=== PATIENT | female | born 1990 | race African-American/Black ===

== ENCOUNTER 2016-12-13 11:57 | Emergency (ER) | payer MEDICAID ==
[2016-12-13 12:35] VITALS: BP 114/48
--- NOTE | 2016-12-13 12:37 | ER Document Report ---
ED Medical Screen (RME) - General Stated Complaint: VIOMITING,COUGH Time seen by provider: 12:34 Mode of Arrival: Ambulatory Information source: Patient Notes: 26-year-old female presents to ED nausea or vomiting cough headache last menstrual period was 08/10/2016. States she took a home test which was positive. States she just moved to the area and does not know where her doctors are. She states she's been smoking since she was possibly I have greeted and performed a rapid initial assessment of this patient. A comprehensive ED assessment and evaluation of the patient, analysis of test results and completion of medical decision making process will be conducted by an additional ED providers. TRAVEL OUTSIDE OF THE [place] IN LAST 30 DAYS: No - Related Data Allergies/Adverse Reactions: ibuprofen Allergy (Verified 04/12/16 11:38) Generalized Itching Past Medical History Pulmonary Medical History: Reports: Hx Bronchitis Musculoskeltal Medical History: Reports Hx Arthritis - Immunizations Hx Diphtheria, Pertussis, Tetanus Vaccination: No - 1999
[2016-12-13 13:06] LABS: ABSOLUTE EOSINOPHILS # (AUTO) 0.1 10^3/uL (0.0-0.6); ABSOLUTE LYMPHOCYTES (AUTO) 3.1 10^3/uL (0.5-4.7); ABSOLUTE MONOCYTES (AUTO) 0.6 10^3/uL (0.1-1.4); ABSOLUTE NEUT (AUTO) 4.3 10^3/uL (1.7-8.2); BASOPHILS % (AUTO) 0.3 % (0-2); EOSINOPHILS % (AUTO) 0.7 % (0-6); HEMATOCRIT 34.7 % (36.0-47.0); HEMOGLOBIN 11.3 g/dL (12.0-15.5); HGB HCT DIFFERENCE -0.8; LYMPHOCYTES % (AUTO) 38.5 % (13-45); MEAN CORPUSCULAR HEMOGLOBIN 24.2 pg (27.0-33.4); MEAN CORPUSCULAR HGB CONC 32.6 g/dL (32.0-36.0); MEAN CORPUSCULAR VOLUME 74 fl (80-97); MONOCYTES % (AUTO) 7.4 % (3-13); RED BLOOD COUNT 4.68 10^6/uL (3.72-5.28); RED CELL DISTRIBUTION WIDTH 14.5 % (11.5-14.0); SEGMENTED NEUTROPHILS % (AUTO) 53.1 % (42-78)
[2016-12-13 13:23] LABS: APPEARANCE,URINE SLIGHTLY-CLOUDY; BILIRUBIN,URINE NEGATIVE (NEGATIVE); GLUCOSE, URINE NEGATIVE (NEGATIVE); KETONES,URINE NEGATIVE (NEGATIVE); LEUKOCYTE ESTERASE,URINE NEGATIVE (NEGATIVE); NITRITE,URINE NEGATIVE (NEGATIVE); PROTEIN,URINE NEGATIVE (NEGATIVE); URINE SPECIFIC GRAVITY 1.009; UROBILINOGEN,URINE NEGATIVE mg/dL (<2.0)
[2016-12-13 13:34] LABS: ALANINE AMINOTRANSFERASE 22 U/L (9-52); ALBUMIN 3.9 g/dL (3.5-5.0); ALKALINE PHOSPHATASE 71 U/L (38-126); ANION GAP 12 (5-19); ASPARTATE AMINO TRANSFERASE 14 U/L (14-36); BILIRUBIN,DIRECT 0.2 mg/dL (0.0-0.4); BILIRUBIN,TOTAL 0.4 mg/dL (0.2-1.3); BLOOD UREA NITROGEN 6 mg/dL (7-20); CALCIUM 9.4 mg/dL (8.4-10.2); CARBON DIOXIDE 22 mmol/L (22-30); CHLORIDE 107 mmol/L (98-107); CREATININE RESULT 0.45 mg/dL (0.52-1.25); GLUCOSE 70 mg/dL (75-110); POTASSIUM 4.1 mmol/L (3.6-5.0); SODIUM 140.8 mmol/L (137-145)
== END 2016-12-13 15:00 | disposition left against medical advice (07) ==
LOC: ER 11:57
DX: Z53.9 Procedure and treatment not carried out, unspecified reason (principal); R11.10 Vomiting, unspecified; R05 Cough
CPT/HCPCS: 36415; 80053; 81001; 84702; 85025; 99281

== ENCOUNTER 2017-05-07 11:37 | Emergency (ER) | payer MEDICAID ==
--- NOTE | 2017-05-07 11:49 | ER Document Report ---
ED Medical Screen (RME) - General Chief Complaint: Numbness of Arm Stated Complaint: ARM PAIN Time Seen by Provider: 05/07/17 11:48 Mode of Arrival: Ambulatory Information source: Patient TRAVEL OUTSIDE OF THE [place] IN LAST 30 DAYS: No - HPI Patient complains to provider of: R arm numbess Onset: Yesterday - pt with onset of numbness and tingling of R arm from elbow to hand - she is 39 wks . - Related Data Allergies/Adverse Reactions: ibuprofen Allergy (Verified 05/07/17 11:44) Generalized Itching Home Medications: Current Home Medications Acetaminophen [Tylenol 325 mg Tablet] 650 mg PO Q6H PRN 05/07/17 [History] Past Medical History Pulmonary Medical History: Reports: Hx Bronchitis Renal/ Medical History: Denies: Hx Peritoneal Dialysis Musculoskeltal Medical History: Reports Hx Arthritis - Immunizations Hx Diphtheria, Pertussis, Tetanus Vaccination: No - 1999 Physical Exam - Vital signs Vitals: Temp Pulse Resp BP Pulse Ox 98.5 F 89 18 129/82 H 98 05/07/17 11:38 05/07/17 11:38 05/07/17 11:38 05/07/17 11:38 05/07/17 11:38 Course - Vital Signs Vital signs: Temp Pulse Resp BP Pulse Ox 98.5 F 89 18 129/82 H 98 05/07/17 11:38 05/07/17 11:38 05/07/17 11:38 05/07/17 11:38 05/07/17 11:38
[2017-05-07 12:16] LABS: HEMATOCRIT 32.4 % (36.0-47.0); HEMOGLOBIN 10.3 g/dL (12.0-15.5); HGB HCT DIFFERENCE -1.5; MEAN CORPUSCULAR HEMOGLOBIN 23.5 pg (27.0-33.4); MEAN CORPUSCULAR HGB CONC 31.8 g/dL (32.0-36.0); MEAN CORPUSCULAR VOLUME 74 fl (80-97); RED BLOOD COUNT 4.39 10^6/uL (3.72-5.28); RED CELL DISTRIBUTION WIDTH 18.5 % (11.5-14.0); WHITE BLOOD COUNT 7.4 10^3/uL (4.0-10.5)
[2017-05-07 12:30] LABS: ALANINE AMINOTRANSFERASE 19 U/L (9-52); ALBUMIN 3.1 g/dL (3.5-5.0); ALKALINE PHOSPHATASE 136 U/L (38-126); ANION GAP 6 (5-19); ASPARTATE AMINO TRANSFERASE 18 U/L (14-36); BILIRUBIN,DIRECT 0.3 mg/dL (0.0-0.4); BILIRUBIN,TOTAL 0.4 mg/dL (0.2-1.3); BLOOD UREA NITROGEN 5 mg/dL (7-20); CALCIUM 8.8 mg/dL (8.4-10.2); CARBON DIOXIDE 22 mmol/L (22-30); CHLORIDE 109 mmol/L (98-107); CREATININE RESULT 0.48 mg/dL (0.52-1.25); GLUCOSE 76 mg/dL (75-110); POTASSIUM 4.1 mmol/L (3.6-5.0); SODIUM 136.7 mmol/L (137-145); TOTAL PROTEIN 6.1 g/dL (6.3-8.2)
[2017-05-07 12:34] LABS: BAND NEUTROPHILS % (MANUAL) 2 % (3-5); BASOPHILS % (MANUAL) 0 % (0-2); EOSINOPHILS % (MANUAL) 1 % (0-6); LYMPHOCYTES % (MANUAL) 38 % (13-45); TOTAL CELLS COUNTED 100
[2017-05-07 12:38] LABS: ANISOCYTOSIS 2+; BURR CELLS SLIGHT; HYPOCHROMASIA 1+; MICROCYTOSIS 1+; OVALOCYTES 1+; POIKILOCYTOSIS 1+; POLYCHROMASIA 1+; TARGET CELLS SLIGHT; TEAR DROP CELLS 1+
--- NOTE | 2017-05-07 12:38 | ER Document Report ---
ED Neuro Symptoms/Deficit - General Chief Complaint: Numbness of Arm Stated Complaint: ARM PAIN Time Seen by Provider: 05/07/17 12:27 Mode of Arrival: Ambulatory TRAVEL OUTSIDE OF THE [place] IN LAST 30 DAYS: No - HPI Patient complains to provider of: Paresthesia - R. UPPER EXTREMITY Onset: Other - 1-1/2 WEEKS Awoke with symptoms: No Symptoms are: Intermittent episodes Duration: Continues in ED - WORSENING LAST PM & TODAY Quality of pain: No pain Context: Other - 3rd TRIMESTER Loss of consciousness: No loss of consciousness Was STROKE ALERT Called: No Baseline Cognitive: Alert, oriented X 3 Baseline Gait: Walks w/o assistance Alert To: Name/Voice Patient Orientation: Person Vision problem/glaucoma: No Associated symptoms: denies: Headache, Nausea, Short of breath, Sweaty, Vomiting Similar symptoms previously: No Recently seen / treated by doctor: Yes - ROUTINE PRE-ROSEY - Related Data Allergies/Adverse Reactions: ibuprofen Allergy (Verified 05/07/17 11:44) Generalized Itching Home Medications: Current Home Medications Acetaminophen [Tylenol 325 mg Tablet] 650 mg PO Q6H PRN 05/07/17 [History] Past Medical History - General Information source: Patient - Social History Smoking Status: Current Every Day Smoker Chew tobacco use (# tins/day): No Frequency of alcohol use: None Drug Abuse: None Lives with: Family Family History: Arthritis, CAD, CVA, DM, Hyperlipidemia, Hypertension, Malignancy, Thyroid Disfunction Patient has suicidal ideation: No Patient has homicidal ideation: No - Past Medical History Cardiac Medical History: Reports: None Pulmonary Medical History: Reports: Hx Bronchitis EENT Medical History: Reports: None Neurological Medical History: Reports: None Endocrine Medical History: Reports: None Renal/ Medical History: Reports: None. Denies: Hx Peritoneal Dialysis Malignancy Medical History: Reports: None GI Medical History: Reports: None Musculoskeltal Medical History: Reports Hx Arthritis Psychiatric Medical History: Reports: None Surgical Hx: Negative - Immunizations Hx Diphtheria, Pertussis, Tetanus Vaccination: No - 1999 Review of Systems - Review of Systems Constitutional: No symptoms reported EENT: No symptoms reported Cardiovascular: No symptoms reported Respiratory: No symptoms reported Gastrointestinal: No symptoms reported Genitourinary: No symptoms reported Female Genitourinary: No symptoms reported Musculoskeletal: No symptoms reported Skin: No symptoms reported Neurological/Psychological: See HPI Physical Exam - Vital signs Vitals: Temp Pulse Resp BP Pulse Ox 98.5 F 89 18 129/82 H 98 05/07/17 11:38 05/07/17 11:38 05/07/17 11:38 05/07/17 11:38 05/07/17 11:38 Interpretation: Normal. No: Hypertensive, Tachycardic, Tachypneic, Febrile - General General appearance: Appears well, Alert In distress: None - HEENT Head: Normocephalic Eyes: Normal Conjunctiva: Normal Cornea: Normal Extraocular movements intact: Yes Eyelashes: Normal Pupils: PERRL Anterior chamber: Normal Fundascopic: Normal Visual hitchcock normal: No - DEFICIT ON RIGHT Ears: Normal Nasal: Normal Mouth/Lips: Normal Mucous membranes: Normal Pharynx: Normal Neck: Normal - Respiratory Respiratory status: No respiratory distress Breath sounds: Normal - Cardiovascular Rhythm: Regular Heart sounds: Normal auscultation Murmur: No - Abdominal Inspection: Gravid female Bowel sounds: Normal - Back Back: Normal - Extremities General upper extremity: Normal inspection General lower extremity: Edema - TRACE, BILAT. - Neurological Neuro grossly intact: Yes Cognition: Normal Orientation: AAOx4 - Psychological Associated symptoms: Normal affect, Normal mood - Skin Skin Temperature: Warm Skin Moisture: Dry Skin Color: Normal Skin Turgor: Elastic Course - Vital Signs Vital signs: Temp Pulse Resp BP Pulse Ox 98.5 F 80 24 H 118/79 100 05/07/17 11:38 05/07/17 12:30 05/07/17 13:00 05/07/17 12:30 05/07/17 13:00 - Laboratory Result Diagrams: 05/07/17 11:58 05/07/17 11:58 Laboratory results interpreted by me: 05/07/17 05/07/17 11:58 11:58 Hgb 10.3 L Hct 32.4 L MCV 74 L MCH 23.5 L MCHC 31.8 L RDW 18.5 H Band Neutrophils % 2 L Metamyelocytes % 1 H Sodium 136.7 L Chloride 109 H BUN 5 L Creatinine 0.48 L Alkaline Phosphatase 136 H Total Protein 6.1 L Albumin 3.1 L Discharge - Discharge Clinical Impression: Paresthesia of right upper extremity Qualifiers: Weeks of gestation: 38 weeks Qualified Code(s): Z3A.38 - 38 weeks gestation of Condition: Stable Disposition: HOME, SELF-CARE Instructions: Numbness or Paresthesia ([facility]), Edema, Peripheral ([facility]) Additional Instructions: USE SPLINT ON RIGHT ARM & WRIST IF IT SEEMS HELPFUL. KEEP FEET, LEGS, AND RIGHT ARM ELEVATED WHEN POSSIBLE. FOLLOW UP FOR YOUR [place] SECTION TUESDAY SCHEDULED. RETURN TO E.R. IF PROBLEMS. Referrals: RANDY SHEPHERD DO [[facility]] - 05/11/17
--- NOTE | 2017-05-07 14:00 | RADIOLOGY REPORT (SQ) ---
EXAM DESCRIPTION: MRI HEAD WITHOUT COMPLETED DATE/TIME: 05/07/2017 1:45 pm REASON FOR STUDY: R. UPPER EXTREMITY PARESTHESIA, VIS. FIELD DEFICIT COMPARISON: None. TECHNIQUE: Multiplanar imaging includes non-contrasted T1, T2, FLAIR, and diffusion with ADC map seq uences. Images stored on PACS. LIMITATIONS: None. FINDINGS: ANATOMY: No anomalies. Normal vascular flow voids. Pituitary fossa normal. CSF SPACES: Normal in size and contour. No hemorrhage. CEREBRUM: Sulci and gyri normal in size and contour. Normal white matter signal on FLAIR imaging. No evidence of hemorrhage, mass, or extraaxial fluid collection. POSTERIOR FOSSA: No signal alteration. No hemorrhage. No edema, masses or mass effect. Internal monet tory canals, cerebello-pontine angles, mastoids normal. DIFFUSION IMAGING: Negative for acute or sub-acute infarction. ORBITS: No masses. Globes normal. PARANASAL SINUSES: No fluid levels. Mucosa normal. OTHER: No other significant finding. IMPRESSION: NORMAL MRI OF THE BRAIN WITHOUT INTRAVENOUS GADOLINIUM CONTRAST. EVIDENCE OF ACUTE STROKE: NO. TECHNICAL DOCUMENTATION: JOB ID: [id number] [employer]- All Rights Reserved
[2017-05-07 22:28] VITALS: BP 121/72
== END 2017-05-07 16:05 | disposition home or self-care (01) ==
LOC: ER 11:37
DX: O26.93 Pregnancy related conditions, unspecified, third trimester (principal); R20.8 Other disturbances of skin sensation; O99.333 Smoking (tobacco) complicating pregnancy, third trimester; Z3A.38 38 weeks gestation of pregnancy
CPT/HCPCS: 99284; 36415; 85025; 80053; 70551; L3908

== ENCOUNTER 2017-05-11 06:16 | Inpatient (IN) | payer MEDICAID ==
[2017-05-10 11:33] LABS: APPEARANCE,URINE CLEAR; BILIRUBIN,URINE NEGATIVE (NEGATIVE); GLUCOSE, URINE NEGATIVE (NEGATIVE); KETONES,URINE NEGATIVE (NEGATIVE); LEUKOCYTE ESTERASE,URINE TRACE (NEGATIVE); NITRITE,URINE NEGATIVE (NEGATIVE); PROTEIN,URINE NEGATIVE (NEGATIVE); URINE SPECIFIC GRAVITY 1.004; UROBILINOGEN,URINE NEGATIVE mg/dL (<2.0)
[2017-05-10 11:43] LABS: HEMATOCRIT 34.3 % (36.0-47.0); HEMOGLOBIN 10.7 g/dL (12.0-15.5); HGB HCT DIFFERENCE -2.2; MEAN CORPUSCULAR HEMOGLOBIN 23.4 pg (27.0-33.4); MEAN CORPUSCULAR HGB CONC 31.2 g/dL (32.0-36.0); MEAN CORPUSCULAR VOLUME 75 fl (80-97); RED BLOOD COUNT 4.57 10^6/uL (3.72-5.28); RED CELL DISTRIBUTION WIDTH 19.7 % (11.5-14.0); WHITE BLOOD COUNT 7.8 10^3/uL (4.0-10.5)
[2017-05-10 11:50] LABS: URINE BARBITURATES SCREEN NEGATIVE; URINE METHADONE SCREEN NEGATIVE; URINE OPIATES LOW NEGATIVE; URINE PHENCYCLIDINE SCREEN NEGATIVE
[2017-05-10 12:18] LABS: BASOPHILS % (MANUAL) 0 % (0-2); EOSINOPHILS % (MANUAL) 0 % (0-6); LYMPHOCYTES % (MANUAL) 33 % (13-45); TOTAL CELLS COUNTED 100
[2017-05-10 12:20] LABS: ANISOCYTOSIS 2+; MICROCYTOSIS 1+; OVALOCYTES SLIGHT; POIKILOCYTOSIS 1+; POLYCHROMASIA 1+; TEAR DROP CELLS SLIGHT; TOXIC GRANULATION SLIGHT
[~2017-05-11 06:16] MED LIST: LACTATED RINGERS 1000 ML IV PRN; LIDOCAINE 0.5% INJ-PF (5 MG/ML) 50 ML SDV SUBCUT PRN; RINGERS SOLUTION,LACTATED 1,000 ML IV PRN
[2017-05-11] MEDS ORDERED: OXYTOCIN 10 UNIT/ML VIAL ONE (09:01)
[2017-05-11] MEDS ORDERED: MIDAZOLAM 2 MG/2 ML INJ ONE (09:02)
[2017-05-11] MEDS ORDERED: FENTANYL CITRATE INJ/PF 250 MCG/5 ML AMPULE ONE (09:02)
[2017-05-11] MEDS ORDERED: FENTANYL CITRATE INJ/PF 100 MCG/2 ML AMPUL ONE ×2 (09:02→10:29)
[2017-05-11] MEDS ORDERED: OXYTOCIN/NORMAL SALINE 20 UNIT/1,000 ML RTUINJ ONE ×2 (09:02→10:30)
[2017-05-11] MEDS ORDERED: EPHEDRINE SULFATE INJ 50 MG/1 ML AMPULE ONE (09:02)
[2017-05-11] MEDS ORDERED: ACETAMINOPHEN 100 ML IV ONE (09:02)
[2017-05-11] MEDS ORDERED: ONDANSETRON HCL INJ/PF 4 MG/2 ML SDV ONE (09:02)
[2017-05-11] MEDS ORDERED: FENTANYL CITRATE INJ/PF 100 MCG/2 ML AMPUL IV PRN ×2 (09:47)
[2017-05-11] MEDS ORDERED: DIPHENHYDRAMINE HCL 50 MG/ML VIAL IV PRN (09:47)
[2017-05-11] MEDS ORDERED: PROMETHAZINE HCL INJ 25 MG/1 ML VIAL IV PRN (09:47)
[2017-05-11] MEDS ORDERED: NALBUPHINE HCL INJ 10 MG/1 ML AMPULE IM ONE (09:56)
[2017-05-11] MEDS ORDERED: NALBUPHINE HCL INJ 10 MG/1 ML AMPULE ONE (10:29)
[2017-05-11] MEDS: FENTANYL CITRATE INJ/PF 100 MCG/2 ML AMPUL IV PRN ×3 (10:57→11:21)
[2017-05-11] MEDS: CEFAZOLIN 2 GM/D5W RTU 2 GM/50 ML RTUPB IV PRN ×2 (11:21→11:22)
[2017-05-11] MEDS: MORPHINE SULFATE 10 MG/ML INJ IV PRN ×3 (11:30→11:47)
[2017-05-11] MEDS ORDERED: MORPHINE SULFATE 10 MG/ML INJ ONE (11:32)
--- NOTE | 2017-05-11 11:32 | OPERATIVE REPORT E ---
Operative Report NAME: SANDRA MELENDEZ : 1990 AGE: 26Y DATE OF SURGERY: 05/11/2017 ROOM: 222 PREOPERATIVE DIAGNOSIS: Intrauterine at 39 weeks with history of and desire for repeat. POSTOPERATIVE DIAGNOSIS: Intrauterine at 39 weeks with history of and desire for repeat. OPERATION PERFORMED: Repeat low-transverse cervical section. SURGEON: DES LOPEZ M.D. ANESTHESIA: Spinal. ESTIMATED BLOOD LOSS: 600 mL. FINDINGS: Uribe male , vertex presentation. Weight was 2875 g. Apgars were 8 and 9. Double nuchal cord was present, which was reduced during delivery. Uterus, tubes and ovaries appeared normal. There was clear amniotic fluid. SPECIMEN TO PATHOLOGY: None. The placenta was discarded. DESCRIPTION OF PROCEDURE: After discussing risks, benefits, and alternatives of the procedure and obtaining informed consent, the patient was taken to the operating room where spinal anesthesia was achieved. She was positioned in a dorsal supine position with a leftward tilt. A Mccarty catheter was placed and she was prepped and draped in the usual standard fashion. A Pfannenstiel skin incision was made. The abdomen was entered in layers in the standard fashion. A C-safe knife was used to make a low-transverse cervical incision. The surgeon's hand was entered into the hysterotomy incision and the vertex delivered easily. The nuchal cords were reduced. The shoulders and body delivered easily thereafter. Cord was clamped and cut. Nasopharynx and oropharynx were bulb suctioned. The infant was handed to Pediatrics who were present. The placenta was manually extracted. The uterus was exteriorized and cleared of all clots and debris. The hysterotomy incision was closed in 2 layers with 0 Monocryl in a running, locked manner. An area of oozing was noted on the left aspect of the incision and a [id number]-[id number] of 0 Monocryl was used and hemostasis was observed. Uterus, tubes and ovaries were returned to the peritoneal cavity. The cavity was irrigated and hemostasis again observed. Peritoneum was closed with 2-0 Vicryl in a pursestring fashion. The rectus muscles were loosely reapproximated with interrupted stitches of 2-0 Vicryl. The subfascial spaces were inspected and noted to be hemostatic. The fascia was closed with #1 Vicryl. Subcutaneous spaces were irrigated and hemostasis assured. The skin was closed in a subcuticular fashion with 3-0 Monocryl. An OpSite dressing was applied. The patient was taken to recovery in stable condition. All sponge, needle, lap and instrument counts were correct x2. DICTATING PHYSICIAN: DES LOPEZ M.D. [id number] PHY#: [id number] ID: [id number] JOB#: [id number] ACCT: [id number] cc:DES LOPEZ M.D. >
[2017-05-11] MEDS: MEPERIDINE HCL/PF INJ 25 MG/1 ML DISP.SYRIN IV PRN ×2 (12:12→12:19)
[2017-05-11] MEDS ORDERED: MEPERIDINE HCL/PF INJ 25 MG/1 ML DISP.SYRIN ONE (12:14)
[2017-05-11] MEDS ORDERED: OXYTOCIN/NORMAL SALINE 20 UNIT/1,000 ML RTUINJ INJ PRN (13:20)
[2017-05-11] MEDS ORDERED: MEASLES,MUMPS&RUBELLA VACC/PF 0.5 ML VIAL SUBCUT PRN (13:30)
[2017-05-11] MEDS ORDERED: SIMETHICONE 80 MG TAB.CHEW PO PRN (13:30)
[2017-05-11] MEDS ORDERED: HYDROMORPHONE HCL INJ/PF 2 MG/ML AMPULE IV PRN (13:30)
[2017-05-11] MEDS ORDERED: OXYCODONE-ACETAMINOPHEN 5-325 MG TABLET PO PRN (13:30)
[2017-05-11] MEDS ORDERED: PROMETHAZINE HCL INJ 25 MG/1 ML VIAL IM PRN (13:30)
[2017-05-11] MEDS ORDERED: DIPH/PERTUSS(ACELL)/TETANUS VAC/PF 0.5 ML SYR (>=10YO) IM PRN (13:30)
[2017-05-11] MEDS ORDERED: RINGERS SOLUTION,LACTATED 1,000 ML IV SCH (13:30)
[2017-05-11] MEDS ORDERED: ACETAMINOPHEN 325 MG TABLET PO PRN (13:30)
[2017-05-11] MEDS ORDERED: KETOROLAC TROMETHAMINE INJ/PF 30 MG/1 ML SDV IV SCH (14:00)
[2017-05-11] MEDS ORDERED: ACETAMINOPHEN 100 ML IV SCH (14:00)
[2017-05-11] MEDS ORDERED: HYDROMORPHONE HCL INJ/PF 2 MG/ML AMPULE ONE (14:17)
[2017-05-11] MEDS: OXYCODONE-ACETAMINOPHEN 5-325 MG TABLET PO PRN ×2 (14:50→20:25)
[2017-05-11] MEDS ORDERED: NAPROXEN 250 MG TABLET PO ONE (17:00)
[2017-05-11] MEDS: DOCUSATE SODIUM 100 MG CAPSULE PO SCH (18:44)
[2017-05-11] MEDS ORDERED: NAPROXEN 250 MG TABLET PO SCH (22:00)
[2017-05-11] MEDS: ZOLPIDEM TARTRATE 5 MG TABLET PO PRN (23:42)
[2017-05-12] MEDS: OXYCODONE-ACETAMINOPHEN 5-325 MG TABLET PO PRN ×5 (01:02→21:32)
[2017-05-12 07:56] LABS: HEMATOCRIT 28.3 % (36.0-47.0); HEMOGLOBIN 9.1 g/dL (12.0-15.5); MEAN CORPUSCULAR HEMOGLOBIN 23.6 pg (27.0-33.4); MEAN CORPUSCULAR HGB CONC 32.1 g/dL (32.0-36.0); MEAN CORPUSCULAR VOLUME 74 fl (80-97); RED BLOOD COUNT 3.84 10^6/uL (3.72-5.28); RED CELL DISTRIBUTION WIDTH 19.3 % (11.5-14.0); WHITE BLOOD COUNT 9.2 10^3/uL (4.0-10.5)
[2017-05-12] MEDS: PRENATAL VITAMIN W-O CA NO5/FE FUMARATE/FA CAPSULE PO SCH (09:39)
[2017-05-12] MEDS: NAPROXEN 250 MG TABLET PO SCH ×2 (09:40→21:32)
[2017-05-12] MEDS: DOCUSATE SODIUM 100 MG CAPSULE PO SCH ×2 (09:40→17:26)
--- NOTE | 2017-05-12 11:48 | PDOC PROGRESS REPORT ---
Subjective-OB Subjective: Post Delivery Day: 26 year old. Denies any needs at this time repeat c section incision dry and intact bonding well with infant bottlefeeding abdomen soft and mildly distended reports flatus/ neg bowel movement reported having prune juice smoker less than 3 cigs daily anemia- increase iron bid encouraged pt to ambulate offers no complaints Physical Exam (OB) Vital Signs: Temp Pulse Resp BP Pulse Ox 98.4 F 65 16 110/62 100 05/12/17 08:01 05/12/17 08:01 05/12/17 08:01 05/12/17 08:01 05/12/17 08:01 Intake & Output 05/11/17 05/12/17 05/13/17 06:59 06:59 06:59 Intake Total 750 3050 Output Total 3850 Balance 750 -800 Weight 66.68 kg - Dressing Removed: No - opsite dressing D&I, no redness, swelling or drainage noted Incision: Well Approximated - Lochia Lochia Amount: Scant < 10 ml Lochia Color: Rubra/Red - Abdomen Description: Tender, Soft Hernia Present: No Fundal Description: Firm, Midline Fundal Height: u/u - u/2 Objective-Diagnostic Laboratory: 05/12/17 07:24 05/12/17 07:24 WBC 9.2 RBC 3.84 Hgb 9.1 L Hct 28.3 L MCV 74 L MCH 23.6 L MCHC 32.1 RDW 19.3 H Plt Count 274
[2017-05-13] MEDS: ZOLPIDEM TARTRATE 5 MG TABLET PO PRN (00:27)
[2017-05-13] MEDS: OXYCODONE-ACETAMINOPHEN 5-325 MG TABLET PO PRN ×3 (03:57→14:25)
[2017-05-13 09:31] VITALS: BP 109/65
--- NOTE | 2017-05-13 10:22 | PDOC DISCHARGE SUMMARY ---
Final Diagnosis Discharge Date: 05/13/17 - Final Diagnosis (1) Acute blood loss anemia Is this a current diagnosis for this admission?: Yes (2) delivery, delivered, current hospitalization Is this a current diagnosis for this admission?: Yes (3) Paresthesia of right upper extremity Is this a current diagnosis for this admission?: Yes (4) Is this a current diagnosis for this admission?: Yes Discharge Data - Discharge Medication Home Medications: Acetaminophen [Tylenol 325 mg Tablet] 650 mg PO Q6H PRN 05/07/17 Pediatric Multivit Comb No.42 [Flintstones] 1 each PO DAILY 05/10/17 Docusate Sodium [Colace 100 mg Capsule] 100 mg PO BID #60 capsule 05/13/17 Iron 18 mg PO BID #60 tablet 05/13/17 Oxycodone HCl/Acetaminophen [Percocet 5-325 mg Tablet] 2 tab PO Q4HP PRN #30 tablet 05/13/17 Gestational Age: 394 Reason(s) for Admission: Ceasarean Section-Repeat Procedures: NST Intrapartum Procedure(s): : Low Cervical, Transverse - Data Baby 1 Male at 1 minute: 8 at 5 minutes: 9 Weight: 2875 kg Home with Mother: Yes Complications: No - Diagnosis Test Laboratory: Temp Pulse Resp BP Pulse Ox 98.3 F 76 16 109/65 100 05/13/17 09:48 05/13/17 09:48 05/13/17 09:48 05/13/17 09:48 05/13/17 09:48 05/10/17 05/10/17 05/12/17 10:18 10:35 07:24 RBC 4.57 3.84 Hgb 10.7 L 9.1 L Hct 34.3 L 28.3 L Urine Opiates Screen NEGATIVE - Discharge information/Instructions Discharge Activity: Activity As Tolerated, No Lifting Over 10 Pounds, Pelvic Rest, No tub bath Discharge Diet: Regular Disposition: HOME, SELF-CARE Follow up with: [facility] in: 1, Weeks
[2017-05-13] MEDS: PRENATAL VITAMIN W-O CA NO5/FE FUMARATE/FA CAPSULE PO SCH (10:26)
[2017-05-13] MEDS: DOCUSATE SODIUM 100 MG CAPSULE PO SCH (10:26)
[2017-05-13] MEDS: NAPROXEN 250 MG TABLET PO SCH (10:26)
== END 2017-05-13 15:02 | disposition home or self-care (01) | DRG 765 ==
LOC: 2S 06:16
PROVIDERS: ADMIT Specialist; ATTEND Specialist
PROC: 10D00Z1 Extraction of Products of Conception, Low, Open Approach (ICD-10-PCS; principal; 2017-05-11 09:15)
DX: O34.211 Maternal care for low transverse scar from previous cesarean delivery (principal); D62 Acute posthemorrhagic anemia; O69.81X0 Labor and delivery complicated by cord around neck, without compression, not applicable or unspecified; N85.8 Other specified noninflammatory disorders of uterus; O99.334 Smoking (tobacco) complicating childbirth; F17.210 Nicotine dependence, cigarettes, uncomplicated; O99.02 Anemia complicating childbirth; R20.9 Unspecified disturbances of skin sensation; Z3A.39 39 weeks gestation of pregnancy; Z37.0 Single live birth
CPT/HCPCS: 1961; 36415; 59025; 80307; 81001; 85025; 85027; 86850; 86900; 86901; 94799; J0131; J1170; J2175; J2250; J2270; J2300; J2405; J2590; J3010; J3490

== ENCOUNTER 2018-12-28 15:53 | Emergency (ER) | payer MEDICAID ==
--- NOTE | 2018-12-28 16:36 | ER Document Report ---
ED Medical Screen (RME) - General Chief Complaint: Flu Symptoms Stated Complaint: FLU LIKE SYMPTOMS Time Seen by Provider: 12/28/18 16:28 Primary Care Provider: SHANI SINCLAIR APRN [Primary Care Provider] - Follow up as needed Mode of Arrival: Ambulatory Information source: Patient Notes: Patient is an otherwise healthy 28-year-old female who presents to the emergency department with cough, congestion, fever, vomiting, body aches and chills that started 2 days ago. Patient reports she is 30 weeks . Denies any abdominal pain, abdominal cramping, vaginal bleeding or abnormal discharge. Patient denies any dysuria or urinary frequency. Patient reports she has not vomited since this morning. Exam: Abdomen soft, nontender with no guarding and no rebound. I have greeted and performed a rapid initial assessment of this patient. A comprehensive ED assessment and evaluation of the patient, analysis of test results and completion of the medical decision making process will be conducted by additional ED providers. Dictation of this chart was performed using voice recognition software; therefore, there may be some unintended grammatical erro rs. TRAVEL OUTSIDE OF THE [place] IN LAST 30 DAYS: No - Related Data Allergies/Adverse Reactions: ibuprofen Allergy (Verified 12/28/18 15:54) Generalized Itching Past Medical History Pulmonary Medical History: Reports: Hx Bronchitis Renal/ Medical History: Denies: Hx Peritoneal Dialysis Musculoskeltal Medical History: Reports Hx Arthritis - Immunizations Hx Diphtheria, Pertussis, Tetanus Vaccination: No - 1999 Physical Exam - Vital signs Vitals: Temp Pulse Resp BP Pulse Ox 98.6 F 91 16 120/42 L 98 12/28/18 15:59 12/28/18 15:59 12/28/18 15:59 12/28/18 15:59 12/28/18 15:59 Course - Vital Signs Vital signs: Temp Pulse Resp BP Pulse Ox 98.6 F 91 16 120/42 L 98 12/28/18 15:59 12/28/18 15:59 12/28/18 15:59 12/28/18 15:59 12/28/18 15:59 Doctor's Discharge - Discharge Referrals: SHANI SINCLAIR APRN [Primary Care Provider] - Follow up as needed
[2018-12-28 17:15] LABS: APPEARANCE,URINE CLOUDY; BILIRUBIN,URINE NEGATIVE (NEGATIVE); COLOR,URINE YELLOW; GLUCOSE, URINE NEGATIVE (NEGATIVE); KETONES,URINE 20 mg/dL (NEGATIVE); LEUKOCYTE ESTERASE,URINE MODERATE (NEGATIVE); NITRITE,URINE NEGATIVE (NEGATIVE); PROTEIN,URINE NEGATIVE (NEGATIVE); URINE SPECIFIC GRAVITY 1.017
[2018-12-28 17:26] LABS: A TYPE INFLUENZA AG NEGATIVE (NEGATIVE); B INFLUENZA AG NEGATIVE (NEGATIVE)
--- NOTE | 2018-12-28 18:13 | ER Document Report ---
ED Flu Like - General Chief Complaint: Flu Symptoms Stated Complaint: FLU LIKE SYMPTOMS Time Seen by Provider: 12/28/18 16:28 Primary Care Provider: SHANI SINCLAIR APRN [NO LOCAL MD] - Follow up as needed Mode of Arrival: Ambulatory Notes: Patient is an otherwise healthy 28-year-old female who presents to the emergency department with cough, congestion, fever, vomiting, body aches and chills that started 2 days ago. Patient reports she is 30 weeks . Denies any abdominal pain, abdominal cramping, vaginal bleeding or abnormal discharge. Patient denies any dysuria or urinary frequency. Patient reports she has not vomited since this morning. TRAVEL OUTSIDE OF THE [place] IN LAST 30 DAYS: No - Related Data Allergies/Adverse Reactions: ibuprofen Allergy (Verified 12/28/18 15:54) Generalized Itching Past Medical History - General Information source: Patient - Social History Smoking Status: Current Some Day Smoker Frequency of alcohol use: None Drug Abuse: None Family History: Arthritis, CAD, CVA, DM, Hyperlipidemia, Hypertension, Malignancy, Thyroid Disfunction Patient has suicidal ideation: No Patient has homicidal ideation: No Pulmonary Medical History: Reports: Hx Bronchitis Renal/ Medical History: Denies: Hx Peritoneal Dialysis Musculoskeletal Medical History: Reports Hx Arthritis - Immunizations Hx Diphtheria, Pertussis, Tetanus Vaccination: No - 1999 Review of Systems - Review of Systems Constitutional: Chills EENT: Nose congestion, Nose discharge Cardiovascular: No symptoms reported Respiratory: Cough Gastrointestinal: No symptoms reported Genitourinary: No symptoms reported Female Genitourinary: No symptoms reported Musculoskeletal: No symptoms reported Skin: No symptoms reported Hematologic/Lymphatic: No symptoms reported Neurological/Psychological: No symptoms reported Physical Exam - Vital signs Vitals: Temp Pulse Resp BP Pulse Ox 98.6 F 91 16 120/42 L 98 12/28/18 15:59 12/28/18 15:59 12/28/18 15:59 12/28/18 15:59 12/28/18 15:59 - Notes Notes: PHYSICAL EXAMINATION: GENERAL: Well-appearing, well-nourished and in no acute distress. HEAD: Atraumatic, normocephalic. EYES: Pupils equal round and reactive to light, extraocular movements intact, conjunctiva are normal. ENT: Nares patent, oropharynx clear without exudates. Moist mucous membranes. NECK: Normal range of motion, supple without lymphadenopathy LUNGS: Breath sounds clear to auscultation bilaterally and equal. No wheezes rales or rhonchi. HEART: Regular rate and rhythm without murmurs ABDOMEN: Soft, nontender, nondistended abdomen. No guarding, no rebound. No masses appreciated. Female : No CVA tenderness. Musculoskeletal: Normal range of motion, no pitting or edema. No cyanosis. NEUROLOGICAL: Cranial nerves grossly intact. Normal speech, normal gait. Normal sensory, motor exams PSYCH: Normal mood, normal affect. SKIN: Warm, Dry, normal turgor, no rashes or lesions noted. Course - Re-evaluation Re-evalutation: Influenza negative. Patient appears to have mild UTI based upon urinalysis. Urine culture pending. Will start patient on p.o. antibiotics. Patient instructed to push fluids. - Vital Signs Vital signs: Temp Pulse Resp BP Pulse Ox 98.5 F 88 16 106/55 L 97 12/28/18 18:24 12/28/18 18:24 12/28/18 18:24 12/28/18 18:24 12/28/18 18:24 - Laboratory Laboratory results interpreted by ar: 12/28/18 16:40 Urine Ketones 20 H Urine Urobilinogen 4.0 H Ur Leukocyte Esterase MODERATE H Discharge - Discharge Clinical Impression: Viral upper respiratory infection Urinary tract infection Qualifiers: Urinary tract infection type: site unspecified Hematuria presence: without hematuria Qualified Code(s): N39.0 - Urinary tract infection, site not specified Condition: Stable Disposition: HOME, SELF-CARE Additional Instructions: Your urine shows findings consistent with a urinary tract infection. Please take all the antibiotics as directed even if your symptoms have improved. Please follow-up with your primary care physician as needed. Return to emergency room if you develop fever >101F, persistent vomiting, become lethargic, have severe pain in your sides, or any other symptoms that are concerning to you. Prescriptions: Cephalexin [Cephalexin 500 MG Tablet] 500 mg PO BID #14 tablet Forms: Return to Work Referrals: SHANI SINCLAIR APRN [NO LOCAL MD] - Follow up as needed
[2018-12-28 18:26] VITALS: BP 106/55
== END 2018-12-28 18:26 | disposition home or self-care (01) ==
LOC: ER 15:53
DX: O23.43 Unspecified infection of urinary tract in pregnancy, third trimester (principal); O99.513 Diseases of the respiratory system complicating pregnancy, third trimester; J06.9 Acute upper respiratory infection, unspecified; B97.89 Other viral agents as the cause of diseases classified elsewhere; O21.9 Vomiting of pregnancy, unspecified; O26.893 Other specified pregnancy related conditions, third trimester; R05 Cough; R09.81 Nasal congestion; R50.9 Fever, unspecified; M79.10 Myalgia, unspecified site; O99.333 Smoking (tobacco) complicating pregnancy, third trimester; Z3A.30 30 weeks gestation of pregnancy
CPT/HCPCS: 81001; 87804; 99283

== ENCOUNTER → 2019-01-09 | Outpatient (CLI) | payer MEDICAID ==
[2019-01-11 13:15] LABS: CYTOMEGALOVIRUS IGG AB >10.00 U/mL (0.00-0.59); CYTOMEGALOVIRUS IGM AB <30.0 AU/mL (0.0-29.9); TOXOPLASMA GONDII IGG AB <3.0 IU/mL (0.0-7.1); TOXOPLASMA GONDII IGM AB <3.0 AU/mL (0.0-7.9)
[2019-01-12 15:14] LABS: PARVOVIRUS B19 IGG AB 2.8 index (0.0-0.8)
== END ==
LOC: OD 16:49
PROVIDERS: ATTEND Obstetrics & Gynecology
DX: O28.3 Abnormal ultrasonic finding on antenatal screening of mother (principal); Z3A.00 Weeks of gestation of pregnancy not specified
CPT/HCPCS: 36415; 86644; 86695; 86747; 86777; 86778

== ENCOUNTER 2019-01-24 11:01 | Outpatient (CLI) | payer MEDICAID ==
[2019-01-24 11:36] LABS: APPEARANCE,URINE CLOUDY; BILIRUBIN,URINE NEGATIVE (NEGATIVE); COLOR,URINE YELLOW; GLUCOSE, URINE NEGATIVE (NEGATIVE); KETONES,URINE NEGATIVE (NEGATIVE); LEUKOCYTE ESTERASE,URINE MODERATE (NEGATIVE); NITRITE,URINE NEGATIVE (NEGATIVE); PROTEIN,URINE NEGATIVE (NEGATIVE); URINE SPECIFIC GRAVITY 1.009; UROBILINOGEN,URINE NEGATIVE mg/dL (<2.0)
[2019-01-24 12:04] LABS: URINE AMPHETAMINES SCREEN NEGATIVE; URINE BARBITURATES SCREEN NEGATIVE; URINE BENZODIAZEPINES SCREEN NEGATIVE; URINE COCAINE SCREEN NEGATIVE; URINE METHADONE SCREEN NEGATIVE; URINE PHENCYCLIDINE SCREEN NEGATIVE
[2019-01-24 12:08] LABS: URINE MARIJUANA (THC) SCREEN UNCONFIRMED POSITIVE
--- NOTE | 2019-01-24 12:21 | Non Stress Test Report ---
Non Stress Test Datetime Report Generated by CPN: 01/24/2019 12:21 DEMOGRAPHIC EGA NST: 35.2 INDICATION Indication for Study: Ordered by Provider Indication for Study (NST) Other: patient states pain MONITORING Monitor Explained: Monitor Explained; Test Explained; Patient Verbalized Understanding Time on Monitor: 01/24/2019 11:17 Time off Monitor: 01/24/2019 12:05 NST Duration: 48 NST INTERVENTIONS NST Interventions: PO Hydration Physician Notified NST: Dr. Soto BABY A: [id number] BABY A Movement : Present Contraction Frequency : irregular FHR Baseline : 130 Accelerations : 15X15 Decelerations : None Variability : Moderate 6-25bpm NST Review: Does Not Meet Criteria for Reactive NST NST Review and Verified By : WIL Limon NST Results: Reactive NST REPORT Report Trigger: Send Report
== END 2019-01-24 12:11 | disposition home or self-care (01) ==
LOC: LC 11:01
PROVIDERS: ATTEND Student in an Organized Health Care Education/Training Program
DX: O47.03 False labor before 37 completed weeks of gestation, third trimester (principal); Z3A.35 35 weeks gestation of pregnancy
CPT/HCPCS: 59025; 80307; 81001

== ENCOUNTER 2019-02-21 06:42 | Inpatient (IN) | payer MEDICAID ==
[2019-02-20 12:20] LABS: HEMATOCRIT 27.7 % (36.0-47.0); HEMOGLOBIN 8.3 g/dL (12.0-15.5); MEAN CORPUSCULAR HEMOGLOBIN 19.7 pg (27.0-33.4); MEAN CORPUSCULAR VOLUME 66 fl (80-97); PLATELET COUNT 245 10^3/uL (150-450); RED BLOOD COUNT 4.23 10^6/uL (3.72-5.28); RED CELL DISTRIBUTION WIDTH 19.9 % (11.5-14.0); WHITE BLOOD COUNT 7.1 10^3/uL (4.0-10.5)
[2019-02-20 12:34] LABS: APPEARANCE,URINE CLOUDY; BILIRUBIN,URINE NEGATIVE (NEGATIVE); COLOR,URINE YELLOW; GLUCOSE, URINE NEGATIVE (NEGATIVE); KETONES,URINE NEGATIVE (NEGATIVE); LEUKOCYTE ESTERASE,URINE LARGE (NEGATIVE); NITRITE,URINE NEGATIVE (NEGATIVE); PROTEIN,URINE NEGATIVE (NEGATIVE); URINE SPECIFIC GRAVITY 1.011; UROBILINOGEN,URINE NEGATIVE mg/dL (<2.0)
[2019-02-20 12:40] LABS: ABSOLUTE MONOCYTES # (MANUAL) 0.1 10^3/uL (0.1-1.4); ABSOLUTE NEUTROPHILS# (MANUAL) 3.9 10^3/uL (1.7-8.2); ANISOCYTOSIS 2+; BAND NEUTROPHILS % (MANUAL) 1 % (3-5); BASOPHILS % (MANUAL) 0 % (0-2); EOSINOPHILS % (MANUAL) 2 % (0-6); HYPOCHROMASIA 3+; LYMPHOCYTES % (MANUAL) 42 % (13-45); METAMYELOCYTES % (MANUAL) 1 % (0); MONOCYTES % (MANUAL) 1 % (3-13); OVALOCYTES 1+; PLATELET COMMENT ADEQUATE; POIKILOCYTOSIS 2+; POLYCHROMASIA SLIGHT; SEGMENTED NEUTROPHILS % (MAN) 53 % (42-78); TEAR DROP CELLS 1+; TOTAL CELLS COUNTED 100
[2019-02-20 12:45] LABS: URINE AMPHETAMINES SCREEN NEGATIVE; URINE BARBITURATES SCREEN NEGATIVE; URINE BENZODIAZEPINES SCREEN NEGATIVE; URINE COCAINE SCREEN NEGATIVE; URINE METHADONE SCREEN NEGATIVE; URINE PHENCYCLIDINE SCREEN NEGATIVE
[2019-02-20 12:56] LABS: URINE MARIJUANA (THC) SCREEN UNCONFIRMED POSITIVE
[~2019-02-21 06:42] MED LIST changes: -RINGERS SOLUTION,LACTATED 1,000 ML IV PRN
[2019-02-21] MEDS ORDERED: ACETAMINOPHEN 1,000 MG/100 ML RTUPB IV ONE (07:04)
[2019-02-21] MEDS ORDERED: CEFAZOLIN 2 GM/D5W RTU 2 GM/50 ML RTUPB IV PRN (07:25)
[2019-02-21] MEDS ORDERED: RINGERS SOLUTION,LACTATED 2,000 ML IV PRN (07:27)
[2019-02-21] MEDS ORDERED: OXYTOCIN/NORMAL SALINE 20 UNIT/1,000 ML RTUINJ ONE (08:53)
[2019-02-21] MEDS ORDERED: MIDAZOLAM 2 MG/2 ML INJ ONE (08:53)
[2019-02-21] MEDS ORDERED: OXYTOCIN 10 UNIT/ML VIAL ONE (08:53)
[2019-02-21] MEDS ORDERED: ONDANSETRON HCL INJ/PF 4 MG/2 ML SDV ONE (08:54)
[2019-02-21] MEDS ORDERED: ONDANSETRON HCL INJ/PF 4 MG/2 ML SDV IV PRN (09:06)
[2019-02-21] MEDS ORDERED: DIPHENHYDRAMINE HCL 50 MG/ML VIAL IV PRN (09:06)
[2019-02-21] MEDS ORDERED: MEPERIDINE HCL/PF INJ 25 MG/1 ML DISP.SYRIN IV PRN (09:06)
[2019-02-21] MEDS ORDERED: FENTANYL CITRATE INJ/PF 100 MCG/2 ML AMPUL IV PRN ×2 (09:06)
[2019-02-21] MEDS ORDERED: MORPHINE SULFATE 10 MG/ML INJ IV PRN (09:06)
[2019-02-21] MEDS ORDERED: PROMETHAZINE HCL INJ 25 MG/1 ML VIAL IV PRN ×2 (09:06→10:22)
[2019-02-21] MEDS ORDERED: RINGERS SOLUTION,LACTATED 1,000 ML IV PRN (10:22)
[2019-02-21] MEDS ORDERED: SIMETHICONE 80 MG TAB.CHEW PO PRN (10:22)
[2019-02-21] MEDS ORDERED: OXYTOCIN/NORMAL SALINE 20 UNIT/1,000 ML RTUINJ IV PRN (10:22)
[2019-02-21] MEDS ORDERED: DIPH/PERTUSS(ACELL)/TETANUS VAC/PF 0.5 ML SYR (>=10YO) IM PRN (10:22)
[2019-02-21] MEDS ORDERED: ACETAMINOPHEN 1,000 MG/100 ML RTUPB IV PRN (10:22)
[2019-02-21] MEDS ORDERED: MEASLES,MUMPS&RUBELLA VACC/PF 0.5 ML VIAL SUBCUT PRN (10:22)
[2019-02-21] MEDS ORDERED: ACETAMINOPHEN 325 MG TABLET PO PRN (10:22)
[2019-02-21] MEDS ORDERED: OXYCODONE-ACETAMINOPHEN 5-325 MG TABLET PO PRN (10:22)
--- NOTE | 2019-02-21 10:22 | PDOC DELIVERY SUMMARY ---
Delivery Summary - Maternal Hx : III DARIUS: 02/26/19 Ruptured Membranes: AROM Time of Rupture: 09:45 Fluids: Meconium Stained - Delivery Presentation: Vertex Heart Rate Monitoring: Done Pre-Operatively Support Person Present: Yes Location: OR : Scheduled, Repeat Placenta: Within Normal Limits Delivery of Placenta Date: 02/21/19 Delivery of Placenta Time: 09:48 - Medications Type of Anesthesia:: Spinal - Infant Assess and Care Baby 1 Female Delivery of Date: 02/21/19 Delivery of Time: 09:47 at 1 minute: 8 at 5 minutes: 9 Preprinted Number On Band: [id number] Skin to Skin: Yes Skin to Skin (Mins): 3 To Nursery At: 09:55 Mode of Transport: Bassinet Delivery Weight: 32.5 Delivery Length: 19.75 in - Delivery Personnel Nursery RN: ISIDRO BOWEN RN: YOKASTA REYES MD: DIANELYS GARCIA
--- NOTE | 2019-02-21 10:28 | Operative Report ---
Operative Report DATE OF SURGERY: 02/21/19 PREOPERATIVE DIAGNOSIS: Patient desires repeat to prevent risk of lorenza rine rupture and tubal ligation using Filshie clips. POSTOPERATIVE DIAGNOSIS: Same OPERATION: Repeat of a low transverse uterine incision tubal ligation with Filshie clips SURGEON: DIANELYS GARCIA ANESTHESIA: Spinal TISSUE REMOVED OR ALTERED: Placenta COMPLICATIONS: None ESTIMATED BLOOD LOSS: 250 cc INTRAOPERATIVE FINDINGS: Viable female infant normal uterus tubes ovaries. Very thin lower uterine segment noted. PROCEDURE: Patient was taken to the OR and placed in supine position after her spinal anesthesia. She is prepared and draped in sterile fashion. Mccarty was placed for drainage of the bladder. Low transverse incision was made and carried down the level of the fascia. The fascial incision was made with knife and extended bilaterally with curved Baer scissors. The fascia was off the rectus muscles using sharp and blunt dissection. The rectus muscles are in the midline. The peritoneum was entered without incident. Bladder blade was placed in uterine segment was identified. A very thin lower uterine segment was noted. Bladder blade was placed low transverse uterine incision was made with the knife and extended with fingertips. The baby was delivered with some fundal pressure. Mouth and nose were suctioned free. The cord is doubly clamped and cut. Baby is passed off to the residential sales executive in attendance. The placenta was manually extracted with trailing membranes. The uterus was externalized wrapped in a moist lap sponge. Uterine contents wiped free. Uterus was closed with a running locking layer of 0 chromic suture using the second layer to imbricate the first completing a double layer closure of the uterus. The pelvis was irrigated and suctioned free of fluid the uterus was replaced in the abdome n. The abdominal wall peritoneum was closed with running 2-0 chromic stitch. Fascia was closed with a running 0 Vicryl in 2 segments. Franck's layer was brought together with 0 plain gut stitch and the skin was closed with running subcuticular 4-0 undyed Vicryl stitch. The wound was dressed mother and baby did well.
[2019-02-21] MEDS ORDERED: FENTANYL CITRATE INJ/PF 100 MCG/2 ML AMPUL ONE ×2 (10:29→11:11)
[2019-02-21] MEDS: FENTANYL CITRATE INJ/PF 100 MCG/2 ML AMPUL IV PRN ×2 (11:13→11:25)
[2019-02-21] MEDS ORDERED: HYDROMORPHONE HCL INJ/PF 2 MG/ML AMPULE ONE (11:49)
[2019-02-21] MEDS: HYDROMORPHONE HCL INJ/PF 2 MG/ML AMPULE IV PRN ×3 (11:52→19:24)
[2019-02-21] MEDS: OXYCODONE-ACETAMINOPHEN 5-325 MG TABLET PO PRN ×3 (12:56→22:47)
[2019-02-21] MEDS: DOCUSATE SODIUM 100 MG CAPSULE PO SCH (17:02)
[2019-02-22] MEDS: OXYCODONE-ACETAMINOPHEN 5-325 MG TABLET PO PRN ×4 (02:47→21:16)
[2019-02-22] MEDS: HYDROMORPHONE HCL INJ/PF 2 MG/ML AMPULE IV PRN ×2 (06:26→18:31)
[2019-02-22 08:53] LABS: HEMATOCRIT 24.3 % (36.0-47.0); MEAN CORPUSCULAR HEMOGLOBIN 20.3 pg (27.0-33.4); MEAN CORPUSCULAR HGB CONC 30.6 g/dL (32.0-36.0); MEAN CORPUSCULAR VOLUME 66 fl (80-97); PLATELET COUNT 242 10^3/uL (150-450); RED BLOOD COUNT 3.67 10^6/uL (3.72-5.28); RED CELL DISTRIBUTION WIDTH 20.2 % (11.5-14.0); WHITE BLOOD COUNT 9.2 10^3/uL (4.0-10.5)
[2019-02-22 09:05] LABS: HEMOGLOBIN 7.4 g/dL (12.0-15.5)
[2019-02-22] MEDS: PRENATAL VITAMIN W DHA CAPSULE PO SCH (09:23)
[2019-02-22] MEDS: DOCUSATE SODIUM 100 MG CAPSULE PO SCH ×2 (09:23→18:31)
--- NOTE | 2019-02-22 11:04 | PDOC PROGRESS REPORT ---
Subjective-OB Progress Note for:: 02/22/19 Physical Exam (OB) Vital Signs: Temp Pulse Resp BP Pulse Ox 98.3 F 53 L 16 119/70 100 02/22/19 07:53 02/22/19 07:53 02/22/19 07:53 02/22/19 07:53 02/22/19 07:53 Intake & Output 02/21/19 02/22/19 02/23/19 06:59 06:59 06:59 Intake Total 4420 120 Output Total 3314 Balance 1106 120 Weight 173 kg - PIH/Pre-Eclampsia DTR's: 2 + Clonus: Negative Headache: Absent Epigastric Pain: No Visual Changes: No - Dressing Removed: No Incision: Dressing Closure Type: OPSITE - Lochia Lochia Amount: Scant < 10 ml Lochia Color: Rubra/Red - Abdomen Description: Soft Hernia Present: No Bowel Sounds: Normoactive Flatus Presence: Present Stool: No Fundal Description: Firm Fundal Height: u/u - u/2 Objective-Diagnostic Laboratory: 02/22/19 07:40 02/22/19 07:40 WBC 9.2 RBC 3.67 L Hgb 7.4 L Hct 24.3 L MCV 66 L MCH 20.3 L MCHC 30.6 L RDW 20.2 H Plt Count 242
[2019-02-23] MEDS: HYDROMORPHONE HCL INJ/PF 2 MG/ML AMPULE IV PRN ×2 (00:05→10:43)
[2019-02-23] MEDS: OXYCODONE-ACETAMINOPHEN 5-325 MG TABLET PO PRN ×2 (08:46→12:18)
[2019-02-23] MEDS: DOCUSATE SODIUM 100 MG CAPSULE PO SCH (10:38)
[2019-02-23] MEDS: PRENATAL VITAMIN W DHA CAPSULE PO SCH (10:39)
[2019-02-23 12:14] VITALS: BP 127/61
--- NOTE | 2019-02-23 12:32 | PDOC PROGRESS REPORT ---
Subjective-OB Progress Note for:: 02/23/19 Subjective: Doing well, no c/o, OOB in halls, bottle feeding, pain under control, passing gas Physical Exam (OB) Vital Signs: Temp Pulse Resp BP Pulse Ox 98.0 F 65 24 H 117/67 100 02/23/19 12:00 02/23/19 12:00 02/23/19 12:00 02/23/19 12:00 02/23/19 12:00 Intake & Output 02/22/19 02/23/19 02/24/19 06:59 06:59 06:59 Intake Total 4420 600 Output Total 3314 Balance 1106 600 - PIH/Pre-Eclampsia DTR's: 1 + Clonus: Negative Headache: Absent Epigastric Pain: No Visual Changes: No - Dressing Removed: No Incision: Dressing Closure Type: op site - Bilateral Tubal Ligation Dressing Removed: No - Lochia Lochia Amount: Scant < 10 ml Lochia Color: Rubra/Red - Abdomen Description: Soft, Round Hernia Present: No Fundal Description: Firm, Midline Fundal Height: u/u - u/2 Objective-Diagnostic Laboratory: 02/22/19 07:40 Assessment and Plan(PN) - Assessment and Plan (1) Anemia Qualifiers: Anemia type: iron deficiency Is this a current diagnosis for this admission?: Yes (2) History of pica Is this a current diagnosis for this admission?: Yes (3) Smoker Is this a current diagnosis for this admission?: Yes (4) Positive urine drug screen Is this a current diagnosis for this admission?: Yes (5) Acute blood loss anemia Is this a current diagnosis for this admission?: Yes (6) delivery, delivered, current hospitalization Is this a current diagnosis for this admission?: Yes - Time Spent with Patient Time with patient: Less than 15 minutes Medications reviewed and adjusted accordingly: Yes - Disposition Anticipated Discharge: Home Within: within 24 hours
--- NOTE | 2019-02-23 12:38 | PDOC DISCHARGE SUMMARY ---
Final Diagnosis Discharge Date: 02/23/19 - Final Diagnosis (1) Anemia Is this a current diagnosis for this admission?: Yes (2) History of pica Is this a current diagnosis for this admission?: Yes (3) Smoker Is this a current diagnosis for this admission?: Yes (4) Positive urine drug screen Is this a current diagnosis for this admission?: Yes (5) Acute blood loss anemia Is this a current diagnosis for this admission?: Yes Discharge Data - Discharge Medication Prescriptions: Oxycodone HCl/Acetaminophen [Percocet 5-325 mg Tablet] 1 tab PO Q4HP PRN #20 tablet PRN Reason: Home Medications: Oxycodone HCl/Acetaminophen [Percocet 5-325 mg Tablet] 1 tab PO Q4HP PRN #20 tablet 02/23/19 Vit/Dha [ Multi + Dha Capsule] 1 cap PO DAILY capsule 02/23/19 Gestational Age: 39 Reason(s) for Admission: Ceasarean Section-Repeat, Tubal Ligation Procedures: NST, Ultrasound Intrapartum Procedure(s): : Low Cervical, Transverse - Data Baby 1 Female Home with Mother: Yes Complications: No - Diagnosis Test Laboratory: Temp Pulse Resp BP Pulse Ox 98.0 F 65 24 H 117/67 100 02/23/19 12:00 02/23/19 12:00 02/23/19 12:00 02/23/19 12:00 02/23/19 12:00 02/20/19 02/20/19 02/22/19 10:30 10:35 07:40 RBC 4.23 3.67 L Hgb 8.3 L 7.4 L Hct 27.7 L 24.3 L Urine Opiates Screen NEGATIVE - Discharge information/Instructions Discharge Activity: Activity As Tolerated, Balance Activity w/Rest, No Lifting Over 10 Pounds, No Lifting/Push/Pulling, Pelvic Rest Discharge Diet: As Tolerated, Regular Disposition: HOME, SELF-CARE Follow up with: [facility] in: 1, Weeks
== END 2019-02-23 13:50 | disposition home or self-care (01) | DRG 784 ==
LOC: 2S 06:42
PROVIDERS: ADMIT Obstetrics & Gynecology; ATTEND Obstetrics & Gynecology
PROC: 0UL70CZ Occlusion of Bilateral Fallopian Tubes with Extraluminal Device, Open Approach (ICD-10-PCS; 2019-02-21)
PROC: 4A1HXCZ Monitoring of Products of Conception, Cardiac Rate, External Approach (ICD-10-PCS; 2019-02-21)
PROC: 10D00Z1 Extraction of Products of Conception, Low, Open Approach (ICD-10-PCS; principal; 2019-02-21 09:30)
DX: O34.211 Maternal care for low transverse scar from previous cesarean delivery (principal); Z30.2 Encounter for sterilization; D62 Acute posthemorrhagic anemia; O90.81 Anemia of the puerperium; O99.334 Smoking (tobacco) complicating childbirth; F17.210 Nicotine dependence, cigarettes, uncomplicated; Z3A.39 39 weeks gestation of pregnancy; Z37.0 Single live birth
CPT/HCPCS: 1961; 36415; 59025; 80307; 81001; 85025; 85027; 86850; 86900; 86901; 94799; J0131; J0690; J1170; J2250; J2405; J2590; J3010; J3490; J7120

== ENCOUNTER 2020-07-23 23:00 | Emergency (ER) | payer MEDICAID ==
[2020-07-23 23:06] VITALS: BP 130/82
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
== END 2020-07-24 00:19 | disposition home or self-care (01) ==
LOC: ER 23:00
DX: R45.82 Worries (principal); Z88.8 Allergy status to other drugs, medicaments and biological substances
CPT/HCPCS: 82962; 99283

== ENCOUNTER 2020-07-31 09:56 | Emergency (ER) | payer SELFPAY ==
[2020-07-31] MEDS ORDERED: LORAZEPAM INJ 2 MG/1 ML VIAL IM ONE ×2 (10:01→19:57)
[2020-07-31] MEDS ORDERED: HALOPERIDOL LACTATE INJ 5 MG/1 ML VIAL IV ONE (10:01)
[2020-07-31] MEDS ORDERED: HALOPERIDOL LACTATE INJ 5 MG/1 ML VIAL IM ONE ×2 (10:02→19:56)
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
[2020-07-31] MEDS ORDERED: DIPHENHYDRAMINE HCL 50 MG/ML VIAL IM ONE (10:29)
[2020-07-31 10:35] LABS: ABSOLUTE LYMPHOCYTES (AUTO) 2.7 10^3/uL (0.5-4.7); ABSOLUTE MONOCYTES (AUTO) 0.7 10^3/uL (0.1-1.4); ABSOLUTE NEUT (AUTO) 3.1 10^3/uL (1.7-8.2); BASOPHILS % (AUTO) 0.6 % (0-2); EOSINOPHILS % (AUTO) 0.6 % (0-6); HEMATOCRIT 35.9 % (36.0-47.0); HEMOGLOBIN 11.5 g/dL (12.0-15.5); LYMPHOCYTES % (AUTO) 41.4 % (13-45); MEAN CORPUSCULAR HEMOGLOBIN 22.8 pg (27.0-33.4); MEAN CORPUSCULAR HGB CONC 32.1 g/dL (32.0-36.0); MEAN CORPUSCULAR VOLUME 71 fl (80-97); MONOCYTES % (AUTO) 10.8 % (3-13); PLATELET COUNT 221 10^3/uL (150-450); RED BLOOD COUNT 5.07 10^6/uL (3.72-5.28); RED CELL DISTRIBUTION WIDTH 18.7 % (11.5-14.0); SEGMENTED NEUTROPHILS % (AUTO) 46.6 % (42-78); TOTAL CELLS COUNTED % (AUTO) 100 %; WHITE BLOOD COUNT 6.6 10^3/uL (4.0-10.5)
[2020-07-31] MEDS ORDERED: BENZTROPINE MESYLATE 1 MG TABLET PO ONE ×2 (10:36→19:58)
[2020-07-31 10:59] LABS: ALBUMIN 4.6 g/dL (3.5-5.0); ALKALINE PHOSPHATASE 71 U/L (38-126); ANION GAP 12 (5-19); ASPARTATE AMINO TRANSFERASE 48 U/L (14-36); BILIRUBIN,TOTAL 0.8 mg/dL (0.2-1.3); BLOOD UREA NITROGEN 12 mg/dL (7-20); CALCIUM 9.5 mg/dL (8.4-10.2); CARBON DIOXIDE 25 mmol/L (22-30); CHLORIDE 101 mmol/L (98-107); GLUCOSE 102 mg/dL (75-110); POTASSIUM 3.8 mmol/L (3.6-5.0); TOTAL PROTEIN 7.4 g/dL (6.3-8.2)
[2020-07-31 11:03] LABS: ACETAMINOPHEN < 10 ug/mL (10-30); ALCOHOL < 10 mg/dL (NONE DETECTED); SALICYLATE < 1.0 mg/dL (2.0-20.0)
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
--- NOTE | 2020-07-31 18:08 | EKG REPORT ---
SEVERITY:- BORDERLINE ECG - SINUS RHYTHM BORDERLINE PROLONGED QT INTERVAL : Confirmed by: Rashaun Marquez MD 31-Jul-2020 18:08:04
[2020-07-31 23:54] LABS: APPEARANCE,URINE CLOUDY; BILIRUBIN,URINE NEGATIVE (NEGATIVE); GLUCOSE, URINE NEGATIVE (NEGATIVE); KETONES,URINE NEGATIVE (NEGATIVE); LEUKOCYTE ESTERASE,URINE SMALL (NEGATIVE); NITRITE,URINE POSITIVE (NEGATIVE); PROTEIN,URINE 100 mg/dL (NEGATIVE); URINE SPECIFIC GRAVITY 1.019
[2020-07-31 23:57] LABS: COLOR,URINE BROWN
[2020-08-01 00:04] LABS: URINE AMPHETAMINES SCREEN NEGATIVE; URINE BARBITURATES SCREEN NEGATIVE; URINE BENZODIAZEPINES SCREEN NEGATIVE; URINE COCAINE SCREEN NEGATIVE; URINE METHADONE SCREEN NEGATIVE; URINE PHENCYCLIDINE SCREEN NEGATIVE
[2020-08-01 00:05] LABS: URINE MARIJUANA (THC) SCREEN UNCONFIRMED POSITIVE
[2020-08-01] MEDS: CEPHALEXIN 500 MG CAPSULE PO SCH ×3 (00:30→18:50)
[2020-08-01] MEDS ORDERED: CEPHALEXIN 500 MG CAPSULE PO ONE (00:45)
--- NOTE | 2020-08-01 16:42 | ER Document Report ---
Doctor's Note Notes: 08/01/20 16:41 Patient is resting quietly in the bed still disoriented. Awaiting psychiatric recommendations today. Chart was reviewed
[2020-08-01 22:29] VITALS: BP 136/75
== END 2020-08-01 22:29 ==
LOC: ER 09:56
DX: F20.9 Schizophrenia, unspecified (principal); F41.9 Anxiety disorder, unspecified; N39.0 Urinary tract infection, site not specified; R31.9 Hematuria, unspecified; Z79.899 Other long term (current) drug therapy; Z88.8 Allergy status to other drugs, medicaments and biological substances; Z78.1 Physical restraint status; Z20.828 Contact with and (suspected) exposure to other viral communicable diseases
CPT/HCPCS: 93005; 99285; 96372; 36415; 87086; 80307 ×4; 85025; 87635; 81025; 87088; 80053; 81001; 87186; 93010; J1630; J2060; C9803